=== PATIENT | female | born 1945 | race Caucasian/White ===

== ENCOUNTER 2021-07-28 19:58 | Observation (INO) | payer MEDICARE, OTHER ==
[2021-07-28] MEDS: Cephalexin 500 MG CAP PO SCH (23:54)
[2021-07-28] MEDS: Sodium Chloride 0.9% 1,000 ML IV SCH (23:55)
[2021-07-28] MEDS: Acetaminophen 325 MG TAB PO PRN (23:55)
[2021-07-29 03:23] VITALS: BMI 26.6
[2021-07-29] MEDS ORDERED: FLU VACC QS2021-22(65YR UP)/PF 240 MCG/0.7 ML SYRINGE IM ONE (04:00)
[2021-07-29 05:48] LABS: Anion Gap 14 mmol/L (10-20); BUN (Urea Nitrogen) 10 mg/dL (9.8-20.1); CK (CPK) 1005 U/L (29-168); Calc. Creatinine Clearance 68 mL/min (70-130); Carbon Dioxide 18 mmol/L (23-31); Chloride 111 mmol/L (98-107); Glucose 87 mg/dL (83-110); Magnesium 1.8 mg/dL (1.6-2.6); Potassium 3.7 mmol/L (3.5-5.1); Sodium 139 mmol/L (136-145)
[2021-07-29 05:57] LABS: Hemoglobin 11.8 g/dL (12.0-15.5); Mean Corpuscular HGB CONC 33.6 g/dL (32.0-36.0); Mean Corpuscular Hemoglobin 30.8 pg (27.0-33.0); Mean Corpuscular Volume 91.6 fl (81.6-98.3); Mean Platelet Volume 9.9 fl (7.4-10.4); Platelet Count 252 10x3/uL (150-450); RBC Distribution Width 13.3 % (11.5-14.5); Red Blood Cell (RBC) Count 3.83 10x6/uL (3.90-5.03); White Blood Cell (WBC) Count 3.4 10x3/uL (3.5-10.5)
[2021-07-29] MEDS: Cephalexin 500 MG CAP PO SCH ×3 (05:59→20:03)
[2021-07-29 07:48] LABS: Band 5 % (5-11); Lymphocytes 23 % (21-51); Reactive Lymphocytes 2 % (0-10)
[2021-07-29 07:50] LABS: Neutrophil 57 % (42-75)
[2021-07-29 07:51] LABS: Monocytes 12 % (0-10); Platelet Morphology Comment Appears Adequate
[2021-07-29 07:52] LABS: Small Platelets MODERATE
[2021-07-29 07:53] LABS: MDiff Complete? YES; RBC Morphology Normal
[2021-07-29] MEDS: Enoxaparin Sodium 40 MG/0.4 ML SYRINGE SC SCH (09:28)
[2021-07-29] MEDS: Sodium Chloride 0.9% 1,000 ML IV SCH (13:17)
[2021-07-29] MEDS: Acetaminophen 325 MG TAB PO PRN (20:22)
[2021-07-30] MEDS: Cephalexin 500 MG CAP PO SCH ×4 (00:35→15:32)
[2021-07-30] MEDS: Sodium Chloride 0.9% 1,000 ML IV SCH ×2 (05:09→15:30)
[2021-07-30] MEDS: Enoxaparin Sodium 40 MG/0.4 ML SYRINGE SC SCH (10:28)
[2021-07-30 12:11] VITALS: TEMP 96.9
[2021-07-30] MEDS ORDERED: guaiFENesin ER 600 MG TAB PO SCH ×2 (13:00→21:00)
[2021-07-30] MEDS: Acetaminophen 325 MG TAB PO PRN (13:09)
[2021-07-30 16:20] VITALS: BP 147/72
== END 2021-07-30 15:50 | disposition home or self-care (01) ==
LOC: INTOOBSV 19:58 → CSHTELE 19:58
PROVIDERS: ADMIT Family Medicine; ATTEND Family Medicine
DX: S02.113A Unspecified occipital condyle fracture, initial encounter for closed fracture (principal); S09.93XA Unspecified injury of face, initial encounter; W19.XXXA Unspecified fall, initial encounter; S02.32XA Fracture of orbital floor, left side, initial encounter for closed fracture; M06.9 Rheumatoid arthritis, unspecified; E03.9 Hypothyroidism, unspecified; I69.319 Unspecified symptoms and signs involving cognitive functions following cerebral infarction; M81.0 Age-related osteoporosis without current pathological fracture
CPT/HCPCS: 80048; 82550; 83735; 85025; 93005; 93010; 93306; 96372; G0378; J1650; J7050

== ENCOUNTER 2022-06-22 16:51 | Inpatient (IN) | payer MEDICARE, OTHER ==
[2022-06-22] MEDS ORDERED: Ondansetron PF 4 MG/2 ML Vial ONE (18:01)
[2022-06-22] MEDS ORDERED: Morphine 4 MG/ML VIAL ONE (18:01)
[2022-06-22] MEDS ORDERED: Ondansetron PF 4 MG/2 ML Vial IVP PRN (18:23)
[2022-06-22] MEDS ORDERED: Bisacodyl 10 MG SUPP PR PRN (18:23)
[2022-06-22] MEDS ORDERED: Senokot S 8.6-50 MG TAB PO PRN (18:23)
[2022-06-22] MEDS ORDERED: Morphine 4 MG/ML VIAL SLOW IVP PRN (18:26)
[2022-06-22] MEDS ORDERED: Acetaminophen 325 MG Suppository ONE (19:18)
[2022-06-22] MEDS ORDERED: Acetaminophen 650 MG Suppository ONE (19:19)
[2022-06-22 20:18] LABS: Hemoglobin 13.8 g/dL (12.0-15.5); Mean Corpuscular HGB CONC 33.8 g/dL (32.0-36.0); Mean Corpuscular Hemoglobin 30.5 pg (27.0-33.0); Mean Corpuscular Volume 90.1 fl (81.6-98.3); Mean Platelet Volume 9.8 fl (7.4-10.4); Platelet Count 416 10x3/uL (150-450); RBC Distribution Width 15.1 % (11.5-14.5); Red Blood Cell (RBC) Count 4.53 10x6/uL (3.90-5.03); White Blood Cell (WBC) Count 3.8 10x3/uL (3.5-10.5)
[2022-06-22 20:22] LABS: Anion Gap 18 mmol/L (10-20); BUN (Urea Nitrogen) 33 mg/dL (9.8-20.1); Calc. Creatinine Clearance 0 mL/min (70-130); Calcium 8.1 mg/dL (7.8-10.44); Carbon Dioxide 20 mmol/L (23-31); Chloride 107 mmol/L (98-107); Estimated GFR 31; Glucose 115 mg/dL (83-110); Potassium 3.5 mmol/L (3.5-5.1); Sodium 141 mmol/L (136-145)
[2022-06-22 20:27] LABS: MDiff Complete? YES
[2022-06-22 20:46] LABS: CKMB 5.3 ng/mL (0-6.6)
[2022-06-22 21:02] LABS: Band 16 % (5-11); Eosinophils 5 % (0-10); Lymphocytes 12 % (21-51); Monocytes 12 % (0-10); Neutrophil 54 % (42-75)
[2022-06-22 21:05] LABS: RBC Morphology Normal
[2022-06-22 21:06] LABS: Platelet Morphology Comment Appears Adequate
[2022-06-22 22:48] LABS: Lactic Acid 1.5 mmol/L (0.5-2.2)
[2022-06-23 01:18] VITALS: BMI 33.5
[2022-06-23] MEDS: Sodium Chloride 0.9% 1,000 ML IV SCH ×2 (01:28→09:02)
[2022-06-23] MEDS: Ketorolac Tromethamine 30 MG/ML VIAL IVP SCH ×4 (01:28→17:01)
[2022-06-23 05:23] LABS: Hemoglobin 13.6 g/dL (12.0-15.5); Mean Corpuscular Hemoglobin 30.7 pg (27.0-33.0); Mean Corpuscular Volume 90.3 fl (81.6-98.3); Platelet Count 358 10x3/uL (150-450); RBC Distribution Width 15.2 % (11.5-14.5); Red Blood Cell (RBC) Count 4.43 10x6/uL (3.90-5.03)
[2022-06-23 05:52] LABS: MDiff Complete? YES
[2022-06-23 05:54] LABS: Anion Gap 19 mmol/L (10-20); BUN (Urea Nitrogen) 42 mg/dL (9.8-20.1); Calc. Creatinine Clearance 35 mL/min (70-130); Calcium 7.6 mg/dL (7.8-10.44); Carbon Dioxide 15 mmol/L (23-31); Chloride 112 mmol/L (98-107); Estimated GFR 28; Glucose 110 mg/dL (83-110); Potassium 3.4 mmol/L (3.5-5.1); Sodium 143 mmol/L (136-145)
[2022-06-23 05:59] LABS: Band 54 % (5-11); Eosinophils 4 % (0-10); Lymphocytes 12 % (21-51); Metamyelocyte 10 % (0-0); Monocytes 7 % (0-10); Neutrophil 13 % (42-75); Nucleated RBC 1 % (0)
[2022-06-23 06:01] LABS: Dohle Bodies SLIGHT; Platelet Morphology Comment Appears Adequate; Reflex for Review?? YES
[2022-06-23 06:02] LABS: RBC Morphology Normal
[2022-06-23] MEDS ORDERED: Sodium Bicarbonate 150 MEQ in Dextrose 5% in Water 1,000 ML IV SCH (08:15)
[2022-06-23] MEDS ORDERED: Piperacillin/Tazobactam 3.375 GM in Sodium Chloride 0.9% 100 ML IVPB SCH (08:30)
[2022-06-23] MEDS: Potassium Chloride 20 MEQ in Premix Bag 1 BAG IVPB SCH ×2 (08:37→10:10)
[2022-06-23] MEDS: Famotidine/PF 20 mg/2ml Vial SLOW IVP SCH (08:37)
[2022-06-23] MEDS ORDERED: Enoxaparin Sodium 40 MG/0.4 ML SYRINGE SC SCH (09:00)
[2022-06-23 09:32] LABS: Magnesium 1.7 mg/dL (1.6-2.6)
[2022-06-23] MEDS ORDERED: Phenylephrine 10 MG/ML VIAL ONE (09:39)
[2022-06-23] MEDS ORDERED: Bupivacaine PF 0.5% 30 ML VIAL ONE (09:39)
[2022-06-23] MEDS ORDERED: EPINEPHrine 1 MG/ML AMP ONE (09:43)
[2022-06-23] MEDS ORDERED: Succinylcholine 200 MG/10 ml SYRINGE FS ONE (09:50)
[2022-06-23] MEDS ORDERED: Lidocaine 1% PF 5 ML VIAL ONE (09:50)
[2022-06-23] MEDS ORDERED: Rocuronium Bromide 10 MG/ML (10ML VIAL) ONE (09:50)
[2022-06-23] MEDS ORDERED: Fentanyl 100 MCG/2 ML VIAL ONE (09:51)
[2022-06-23] MEDS ORDERED: PROPOFOL 20 ML ONE (09:51)
[2022-06-23 10:00] LABS: CKMB 26.3 ng/mL (0-6.6)
[2022-06-23] MEDS ORDERED: SUGAMMADEX SODIUM 200 MG/2 ML VIAL ONE (11:45)
[2022-06-23] MEDS: Piperacillin/Tazobactam 3.375 GM in Sodium Chloride 0.9% 100 ML IVPB SCH ×2 (13:15→21:36)
[2022-06-23 13:46] LABS: Bilirubin Neg (Negative); Blood, Urine 150 (Negative); CAUTI Indications for Culture Fever or rigors; Clarity Slightly Cloudy (Clear); Glucose, Urine (Dipstick) Normal (Negative); Ketone, Urine 5 mg/dL (Negative); Leukocyte 25 (Negative); Nitrite Positive (Negative); Protein, Urine (Dipstick) 100 mg/dl (Neg-Trace); Specific Gravity, Urine 1.015 (1.005-1.030); Urobilinogen Normal mg/dL (Less than 2)
[2022-06-23 14:18] LABS: Squamous Epithelial 0-3 HPF (0-3)
[2022-06-23 14:19] LABS: Bacteria/HPF 2+ HPF (None Seen)
[2022-06-23 14:23] LABS: Urine Culture Reflex No No
[2022-06-23 16:56] LABS: CKMB 17.3 ng/mL (0-6.6)
[2022-06-24] MEDS: Ketorolac Tromethamine 30 MG/ML VIAL IVP SCH ×4 (00:07→18:41)
[2022-06-24] MEDS ORDERED: Morphine 4 MG/ML VIAL SLOW IVP PRN ×2 (02:41→02:45)
[2022-06-24] MEDS: Piperacillin/Tazobactam 3.375 GM in Sodium Chloride 0.9% 100 ML IVPB SCH ×3 (03:54→21:42)
[2022-06-24] MEDS: Lactated Ringer's 1,000 ML IV SCH ×3 (03:54→21:42)
[2022-06-24 05:23] LABS: Hemoglobin 11.8 g/dL (12.0-15.5); Mean Corpuscular HGB CONC 32.9 g/dL (32.0-36.0); Mean Corpuscular Hemoglobin 30.6 pg (27.0-33.0); Mean Platelet Volume 9.7 fl (7.4-10.4); Platelet Count 305 10x3/uL (150-450); RBC Distribution Width 15.6 % (11.5-14.5); Red Blood Cell (RBC) Count 3.86 10x6/uL (3.90-5.03); White Blood Cell (WBC) Count 7.9 10x3/uL (3.5-10.5)
[2022-06-24 05:39] LABS: MDiff Complete? YES
[2022-06-24 05:43] LABS: Band 48 % (5-11); Eosinophils 10 % (0-10); Lymphocytes 7 % (21-51); Monocytes 8 % (0-10); Neutrophil 27 % (42-75)
[2022-06-24 05:45] LABS: Platelet Morphology Comment Appears Adequate; Toxic Granulation SLIGHT
[2022-06-24 05:46] LABS: RBC Morphology Normal
[2022-06-24 06:02] LABS: Anion Gap 17 mmol/L (10-20); BUN (Urea Nitrogen) 49 mg/dL (9.8-20.1); Calc. Creatinine Clearance 38 mL/min (70-130); Calcium 7.1 mg/dL (7.8-10.44); Carbon Dioxide 18 mmol/L (23-31); Chloride 113 mmol/L (98-107); Estimated GFR 31; Glucose 78 mg/dL (83-110); Potassium 3.2 mmol/L (3.5-5.1); Sodium 145 mmol/L (136-145)
[2022-06-24] MEDS: Enoxaparin Sodium 30 MG/0.3 ML SYRINGE SC SCH (09:09)
[2022-06-24] MEDS: Famotidine/PF 20 mg/2ml Vial SLOW IVP SCH (09:09)
[2022-06-25] MEDS: Ketorolac Tromethamine 30 MG/ML VIAL IVP SCH ×4 (00:35→17:51)
[2022-06-25] MEDS: Lactated Ringer's 1,000 ML IV SCH (02:27)
[2022-06-25] MEDS: Piperacillin/Tazobactam 3.375 GM in Sodium Chloride 0.9% 100 ML IVPB SCH (04:58)
[2022-06-25 05:57] LABS: Hemoglobin 11.2 g/dL (12.0-15.5); Mean Corpuscular HGB CONC 33.2 g/dL (32.0-36.0); Mean Corpuscular Hemoglobin 30.4 pg (27.0-33.0); Mean Corpuscular Volume 91.3 fl (81.6-98.3); Platelet Count 280 10x3/uL (150-450); RBC Distribution Width 15.3 % (11.5-14.5); Red Blood Cell (RBC) Count 3.69 10x6/uL (3.90-5.03); White Blood Cell (WBC) Count 7.5 10x3/uL (3.5-10.5)
[2022-06-25 06:17] LABS: Anion Gap 14 mmol/L (10-20); BUN (Urea Nitrogen) 31 mg/dL (9.8-20.1); Calc. Creatinine Clearance 58 mL/min (70-130); Calcium 6.7 mg/dL (7.8-10.44); Carbon Dioxide 19 mmol/L (23-31); Chloride 114 mmol/L (98-107); Estimated GFR 52; Glucose 103 mg/dL (83-110); Sodium 144 mmol/L (136-145)
[2022-06-25] MEDS ORDERED: Calcium Gluconate 4.6 MEQ in Sodium Chloride 0.9% 100 ML IVPB SCH (06:45)
[2022-06-25 08:01] LABS: MDiff Complete? YES
[2022-06-25 08:04] LABS: Band 13 % (5-11); Eosinophils 4 % (0-10); Lymphocytes 11 % (21-51); Monocytes 3 % (0-10); Neutrophil 68 % (42-75); Reactive Lymphocytes 1 % (0-10)
[2022-06-25 08:06] LABS: Dohle Bodies SLIGHT; Platelet Morphology Comment Appears Adequate
[2022-06-25 08:08] LABS: Toxic Granulation SLIGHT
[2022-06-25] MEDS: Enoxaparin Sodium 30 MG/0.3 ML SYRINGE SC SCH (10:35)
[2022-06-25] MEDS: Famotidine/PF 20 mg/2ml Vial SLOW IVP SCH (10:35)
[2022-06-25 13:48] LABS: Magnesium 1.9 mg/dL (1.6-2.6)
[2022-06-25] MEDS ORDERED: Potassium Chloride 20 MEQ TAB PO SCH (14:00)
[2022-06-26] MEDS: Ketorolac Tromethamine 30 MG/ML VIAL IVP SCH ×3 (02:15→15:05)
[2022-06-26 08:35] VITALS: TEMP 97.9
[2022-06-26 08:39] LABS: Anion Gap 14 mmol/L (10-20); BUN (Urea Nitrogen) 17 mg/dL (9.8-20.1); Calc. Creatinine Clearance 74 mL/min (70-130); Calcium 7.1 mg/dL (7.8-10.44); Carbon Dioxide 20 mmol/L (23-31); Chloride 114 mmol/L (98-107); Estimated GFR 70; Glucose 92 mg/dL (83-110); Potassium 3.7 mmol/L (3.5-5.1); Sodium 144 mmol/L (136-145)
[2022-06-26] MEDS ORDERED: Famotidine/PF 20 mg/2ml Vial SLOW IVP SCH (09:00)
[2022-06-26] MEDS ORDERED: Enoxaparin Sodium 40 MG/0.4 ML SYRINGE SC SCH ×2 (09:00)
[2022-06-26] MEDS ORDERED: Famotidine 20 MG TAB PO SCH (09:00)
[2022-06-26 12:14] VITALS: BP 123/73
== END 2022-06-26 15:00 | disposition swing bed (61) | DRG 856 ==
LOC: CSHERS 16:51 → CSHTELE 18:23
PROVIDERS: ADMIT Hospitalist; ATTEND Family Medicine
PROC: 0DNU4ZZ Release Omentum, Percutaneous Endoscopic Approach (ICD-10-PCS; principal; 2022-06-23)
PROC: 0DN84ZZ Release Small Intestine, Percutaneous Endoscopic Approach (ICD-10-PCS; 2022-06-23)
DX: T81.40XA Infection following a procedure, unspecified, initial encounter (principal); A41.9 Sepsis, unspecified organism; I21.A1 Myocardial infarction type 2; K56.50 Intestinal adhesions [bands], unspecified as to partial versus complete obstruction; N39.0 Urinary tract infection, site not specified; N17.9 Acute kidney failure, unspecified; E87.20 Acidosis, unspecified; T81.44XA Sepsis following a procedure, initial encounter; I10 Essential (primary) hypertension; E78.5 Hyperlipidemia, unspecified; E03.9 Hypothyroidism, unspecified; Z96.653 Presence of artificial knee joint, bilateral; M06.9 Rheumatoid arthritis, unspecified; Z20.822 Contact with and (suspected) exposure to COVID-19; Z79.82 Long term (current) use of aspirin; Z79.890 Hormone replacement therapy; Z79.899 Other long term (current) drug therapy; Z91.018 Allergy to other foods; Z90.710 Acquired absence of both cervix and uterus; Z87.891 Personal history of nicotine dependence; Z90.49 Acquired absence of other specified parts of digestive tract; Z79.01 Long term (current) use of anticoagulants; Z86.718 Personal history of other venous thrombosis and embolism; Y83.8 Other surgical procedures as the cause of abnormal reaction of the patient, or of later complication, without mention of misadventure at the time of the procedure
CPT/HCPCS: 36415; 80048; 81001; 82553; 83605; 83735; 84145; 84484; 85025; 85060; 87040; 93005; 93010; 94760; 96374; 96375; J0171; J0610; J1650; J1885; J2270; J2370; J2405; J2543; J2704; J3010; J3480; J3490; J7050; J7120; S0020; S0028